=== PATIENT | male | born 2000 | race Caucasian/White ===

== ENCOUNTER 2018-05-08 09:50 | Emergency (ER) | payer MEDICAID, OTHER ==
[2018-05-08 10:11] VITALS: RESP 18; TEMP 98.2; O2SAT 100
--- NOTE | 2018-05-08 10:43 | ED PDOC ---
Arrival/HPI - General Chief Complaint: Lower Extremity Problem/Injury Time Seen by Provider: 05/08/18 10:32 Historian: Patient - History of Present Illness Narrative History of Present Illness (Text): 05/08/18 10:39 18 y/o male, no significant pmh, nkda, c/o rt. ankle pain s/p twisting injury yesterday while playing soccer. Aching pain, aggravated by walking, inversion? eversion? injury, no calf pain, no knee pain, no fall or other injury, no other medical or psychological complaints. Past Medical History - Provider Review Nursing Documentation Reviewed: Yes - Psychiatric Hx Substance Use: No - Surgical History Hx Appendectomy: Yes - Anesthesia Hx Anesthesia: Yes Hx Anesthesia Reactions: No Hx Malignant Hyperthermia: No Family/Social History - Physician Review Nursing Documentation Reviewed: Yes Family/Social History: Unknown Family HX Smoking Status: Light Smoker < 10 Cigarettes Daily Hx Alcohol Use: Yes Frequency of alcohol use: Socially Hx Substance Use: No Allergies/Home Meds Allergies/Adverse Reactions: Allergies No Known Allergies Allergy (Verified 05/08/18 10:13) Review of Systems - Review of Systems Constitutional: absent: Fatigue, Fevers Eyes: absent: Vision Changes ENT: absent: Hearing Changes Respiratory: absent: SOB, Cough Cardiovascular: absent: Chest Pain Gastrointestinal: absent: Abdominal Pain, Nausea, Vomiting Musculoskeletal: Arthralgias, Joint Swelling. absent: Back Pain, Myalgias Skin: absent: Rash, Pruritis Neurological: absent: Headache, Dizziness Psychiatric: absent: Anxiety, Depression, Suicidal Ideation Physical Exam Vital Signs Reviewed: Yes Vital Signs Temp Pulse Resp BP Pulse Ox 05/08/18 11:00 75 18 101/64 100 05/08/18 10:10 98.2 F 82 18 100/66 100 Temperature: Afebrile Blood Pressure: Normal Pulse: Regular Respiratory Rate: Normal Appearance: Positive for: Well-Appearing, Non-Toxic, Comfortable Pain Distress: Moderate Mental Status: Positive for: Alert and Oriented X 3 - Systems Exam Head: Present: Atraumatic, Normocephalic Pupils: Present: PERRL Extroacular Muscles: Present: EOMI Conjunctiva: Present: Normal Mouth: Present: Moist Mucous Membranes Neck: Present: Normal Range of Motion Respiratory/Chest: Present: Clear to Auscultation, Good Air Exchange. No: Respiratory Distress, Accessory Muscle Use Cardiovascular: Present: Regular Rate and Rhythm, Normal S1, S2. No: Murmurs Abdomen: No: Tenderness, Distention, Peritoneal Signs Back: Present: Normal Inspection Upper Extremity: Present: Normal Inspection. No: Cyanosis, Edema Lower Extremity: Present: Normal Inspection, Other (Rt. ankle/foot: +ttp on the medial and lateral malleolus with swelling on the lateral malleolus, FROM without limitation, sensation intact, motor 5/5, +DPPT pulses, capillary refill < 2 seconds, no foot tenderness/swelling, neurovascular intact. ). No: Edema Neurological: Present: GCS=15, CN II-XII Intact, Speech Normal Skin: Present: Warm, Dry, Normal Color. No: Rashes Psychiatric: Present: Alert, Oriented x 3, Normal Insight, Normal Concentration Medical Decision Making ED Course and Treatment: 05/08/18 10:42 -Rt. ankle xray and there is no foot tenderness or swelling -Motrin -Observe and reassess 05/08/18 11:39 -Rt. ankle xray show no fracture or dislocation but soft tissue swelling noted. -Posterior splint applied by me with neurovascular intact, crutches given. -Discharge home with motrin, posterior splint, crutches, ice compression, follow up with your own pmd within 2 days, return to the ER for any new or worsening signs or symptoms. - RAD Interpretation Radiology Orders: 05/08/18 10:39 ANKLE RIGHT 3 VIEWS ROUTINE [RAD] Stat PROCEDURE: Right Ankle Radiographs. HISTORY: rt. ankle inversion/eversion injury, c/o pain COMPARISON: None FINDINGS: BONES: Normal. No fracture. JOINTS: Normal. No osteoarthritis. Ankle mortise maintained. Talar dome intact SOFT TISSUES: Lateral soft tissue swelling. OTHER FINDINGS: None. IMPRESSION: No fracture. Lateral soft tissue swelling. Dust Operator: Radiologist - Medication Orders Current Medication Orders: Discontinued Medications Ibuprofen (Motrin Tab) 600 mg PO STAT STA Stop: 05/08/18 10:40 Last Admin: 05/08/18 10:53 Dose: 600 mg MAR Pain/Vitals Document 05/08/18 10:53 EQ (Rec: 05/08/18 10:53 EQ [id number] Pain Reassessment Is This A Pain ReAssessment? No Sleep Is patient sleeping during reassessment? No Presence of Pain Presence of Pain Yes - PA / DIRECTOR OF BROADCAST / Resident Statement MD/DO has reviewed & agrees with the documentation as recorded. Disposition/Present on Arrival - Present on Arrival Any Indicators Present on Arrival: No History of DVT/PE: No History of Uncontrolled Diabetes: No Urinary Catheter: No History of Decub. Ulcer: No History Surgical Site Infection Following: None - Disposition Have Diagnosis and Disposition been Completed?: Yes Diagnosis: Ankle injury, Ankle pain Disposition: HOME/ ROUTINE Disposition Time: 11:41 Patient Plan: Discharge Patient Problems: Current Active Problems Problem Status Onset Ankle injury Acute Ankle pain Acute Condition: IMPROVED Additional Instructions: -Discharge home with motrin, posterior splint, crutches, ice compression, follow up with your own pmd within 2 days, return to the ER for any new or worsening signs or symptoms. Prescriptions: Ibuprofen [Motrin Tab] 800 mg PO TID PRN #[id number] tab PRN Reason: Other Referrals: River Reid MD [Primary Care Provider] - Follow up with primary Gia Shah MD [Staff Provider] - Follow up with primary Forms: [employer] ([place]ive[place]), WORK NOTE
--- NOTE | 2018-05-08 11:44 | RAD ---
Date of service: 05/08/2018 PROCEDURE: Right Ankle Radiographs. HISTORY: rt. ankle inversion/eversion injury, c/o pain COMPARISON: None FINDINGS: BONES: Normal. No fracture. JOINTS: Normal. No osteoarthritis. Ankle mortise maintained. Talar dome intact SOFT TISSUES: Lateral soft tissue swelling. OTHER FINDINGS: None. IMPRESSION: No fracture. Lateral soft tissue swelling.
[2018-05-08 12:41] VITALS: BP 103/68; PULSE 69
== END 2018-05-08 12:44 | disposition home or self-care (01) ==
LOC: ED 09:50
DX: M25.571 Pain in right ankle and joints of right foot (principal); S99.911A Unspecified injury of right ankle, initial encounter; X50.1XXA Overexertion from prolonged static or awkward postures, initial encounter; Y93.66 Activity, soccer; F17.210 Nicotine dependence, cigarettes, uncomplicated